=== PATIENT | male | born 1995 | race Caucasian/White ===

== ENCOUNTER 2020-10-06 19:38 | Emergency (ER) | payer OTHER ==
[~2020-10-06] VITALS: Ht 172.7 cm; Wt 72.6 kg
[2020-10-07] MEDS ORDERED: CLEOCIN HCL300 MG PO (00:11)
[2020-10-07] MEDS ORDERED: INTESTINEX680 M2 PO (00:11)
[2020-10-07] MEDS ORDERED: NAPROXEN375 MG PO (00:22)
[2020-10-07] MEDS ORDERED: PEPCID AC20 MG PO (00:22)
== END 2020-10-07 00:25 | disposition home or self-care (01) ==
LOC: ER 19:38
DX: J02.9 Acute pharyngitis, unspecified (principal)